=== PATIENT | female | born 1955 | race Caucasian/White ===

== ENCOUNTER 2018-08-07 17:01 | Inpatient (IN) | payer OTHER ==
[~2018-08-07] VITALS: Ht 157.5 cm; Wt 75.3 kg
[~2018-08-07 17:01] MED LIST: LEVO500T48 PO
[2018-08-07] MEDS ORDERED: SODIUM CHLORIDE 0.9% 1L BAG IV* STA (17:24)
[2018-08-07] MEDS ORDERED: CEFTRIAXONE 1 GM/50 ML (PMX) 50 ML IVPB STA (17:24)
[2018-08-07] MEDS ORDERED: morphine 4 MG/ML VIAL IV STA (17:24)
[2018-08-07] MEDS ORDERED: ONDANSETRON 4 MG INJ IV STA (17:24)
[2018-08-07] MEDS ORDERED: ACETAMINOPHEN 325 MG TAB PO STA (17:24)
[2018-08-07] MEDS ORDERED: KETOROLAC 15 MG INJ IV STA (17:24)
--- NOTE | 2018-08-07 17:51 | ERD ---
ER Documentation Chief Complaint Chief Complaint fever , chills , post op , rt kidney surg 08/04/18 HPI 63-year-old female who had recent right ureteral stone status post stent placement and partial retrieval. Patient has had fevers and chills over the last several days. She describes persistent right-sided flank pain that is mod erate. It appears the patient's surgical intervention was 1 week ago, with check up 3 days ago. She denies any cough chest pain or shortness of breath. Symptoms are moderate currently. ROS All systems reviewed and are negative except as per history of present illness. Medications Home Meds Reported Medications Hydrocodone/Acetaminophen ([place] 7.5-325 Tablet) 1 Each Tablet, 1 EACH PO Q4H, TAB 08/07/18 Discontinued Scripts Levofloxacin* (Levaquin*) 500 Mg Tablet, 500 MG PO DAILY for 5 Days, TAB Prov:WILLIAMZECHARIAH 02/15/16 Allergies Allergies: Coded Allergies: sulfamethoxazole (Verified Allergy, Severe, Redness, low blood pressure, itchiness, ALOC, 08/07/18) trimethoprim (Verified Allergy, Severe, Redness, low blood pressure, itchiness, ALOC, 08/07/18) Penicillins (Unverified Allergy, Unknown, 08/07/18) PMhx/Soc History of Surgery: Yes (pt "stone removed from lung" 2005, ectopic & L ovary removed 1982) Anesthesia Reaction: No Hx Neurological Disorder: No Hx Respiratory Disorders: No Hx Cardiac Disorders: No Hx Psychiatric Problems: No Hx Miscellaneous Medical Probl: No Hx Alcohol Use: No Hx Substance Use: No Hx Tobacco Use: No FmHx Family History: No diabetes Physical Exam Vitals Vital Signs Date Temp Pulse Resp B/P (MAP) Pulse Ox O2 O2 Flow FiO2 Time Delivery Rate 08/07/18 100.7 85 16 90/65 (73) 100 Room Air 18:47 08/07/18 126 20 134/87 100 Room Air 17:50 (103) 08/07/18 103.3 17:45 08/07/18 103.2 133 18 126/76 99 17:19 (93) Physical Exam General: Diaphoretic Head: Normocephalic, atraumatic. Eyes: Pupils equally reactive, EOM intact ENT: Moist mucous membranes Neck: Supple, no lymphadenopathy Respiratory: Lungs clear bilaterally, no distress Cardiovascular: Tachycardia, no murmurs, rubs, or gallops Abdominal: Soft, non-tender, non-distended, no peritoneal signs Back: Right-sided CVA tenderness : Deferred MSK: No edema, no unilateral swelling, 5/5 strength Neurologic: Alert and oriented, moving all extremities, normal speech, no focal weakness, no cerebellar signs Skin: No rash Psych: Normal mood Result Diagram: 08/07/18 1733 08/07/18 1733 Results 24 hrs Laboratory Tests Test 08/07/18 17:33 08/07/18 17:34 White Blood Count 8.5 10^3/ul Red Blood Count 5.14 10^6/ul Hemoglobin 11.9 g/dl Hematocrit 38.3 % Mean Corpuscular Volume 74.5 fl Mean Corpuscular Hemoglobin 23.2 pg Mean Corpuscular Hemoglobin Concent 31.1 g/dl Red Cell Distribution Width 17.0 % Platelet Count 354 10^3/UL Mean Platelet Volume 10.3 fl Immature Granulocytes % 0.700 % Neutrophils % % Segmented Neutrophils % (Manual) 76 % Band Neutrophils % (Manual) 15 % Lymphocytes % % Lymphocytes % (Manual) 8 % Monocytes % % Eosinophils % % Basophils % % Promyelocytes % (Manual) 1 % Nucleated Red Blood Cells % 0.0 /100WBC Immature Granulocytes # 0.060 10^3/ul Neutrophils # 10^3/ul Neutrophils # (Manual) 6.6 10^3/ul Band Neutrophils # 1.2 10^3/ul Lymphocytes (Manual) 0.6 10^3/ul Lymphocytes # 10^3/ul Monocytes # 10^3/ul Eosinophils # 10^3/ul Basophils # 10^3/ul Promyelocytes # 0.0 10^3/ul Nucleated Red Blood Cells # 10^3/ul Platelet Estimate NORMAL Polychromasia 1+ Anisocytosis 2+ Microcytosis 2+ Prothrombin Time 14.1 Sec Prothrombin Time Ratio 1.1 INR International Normalized Ratio 1.08 Activated Partial Thromboplast Time 28.2 Sec Sodium Level 134 mmol/L Potassium Level 4.3 mmol/L Chloride Level 100 mmol/L Carbon Dioxide Level 22 mmol/L Anion Gap 12 Blood Urea Nitrogen 14 mg/dl Creatinine 0.97 mg/dl Est Glomerular Filtrat Rate mL/min 58 mL/min Glucose Level 151 mg/dl Calcium Level 9.1 mg/dl Total Bilirubin 1.0 mg/dl Direct Bilirubin 0.00 mg/dl Indirect Bilirubin 1.0 mg/dl Aspartate Amino Transf (AST/SGOT) 38 IU/L Alanine Aminotransferase (ALT/SGPT) 17 IU/L Alkaline Phosphatase 231 IU/L Troponin I < 0.012 ng/ml Total Protein 7.6 g/dl Albumin 3.8 g/dl Globulin 3.80 g/dl Albumin/Globulin Ratio 1.00 POC Venous Lactate 3.4 mmol/L Current Medications Medications Dose Sig/Leonie Start Time Status Last (Trade) Ordered Route PRN Stop Time Admin Dose Reason Admin Sodium 2,150 ml BOLUS OVER 2 08/07/18 DC 08/07/18 Chloride HOURS STAT 17:24 17:39 (NS) IV* 08/07/18 17:30 650 mg ONCE STAT 08/07/18 DC 08/07/18 Acetaminophen PO 17:24 17:45 (Tylenol 08/07/18 17:30 Tab) Morphine 4 mg ONCE STAT 08/07/18 DC 08/07/18 Sulfate IV 17:24 17:43 (morphine) 08/07/18 17:30 Ondansetron 4 mg ONCE STAT 08/07/18 DC 08/07/18 HCl (Zofran IV 17:24 17:43 Inj) 08/07/18 17:30 Ceftriaxone 50 ml @ ONCE STAT 08/07/18 DC 08/07/18 Sodium 100 mls/hr IVPB 17:24 17:45 08/07/18 17:53 Ketorolac 15 mg ONCE STAT 08/07/18 DC 08/07/18 Tromethamine IV 17:24 17:43 (Toradol) 08/07/18 17:30 Ondansetron 4 mg BRIDGE ORDER 08/07/18 HCl (Zofran PRN IV 19:00 Inj) NAUSEA/VOMITI 08/08/18 18:59 NG 650 mg ER BRIDGE 08/07/18 Acetaminophen PRN PO 19:00 (Tylenol .MILD PAIN 08/08/18 18:59 Tab) 1-3 OR TEMP Sodium 1,000 ml @ Q1H STAT 08/07/18 Chloride 1,000 mls/hr IV 19:30 08/07/18 20:29 Procedures/MDM EKG, MONITORS, & DIAGNOSTIC IMAGING: EKG: I reviewed and interpreted a 12-lead EKG. Rhythm: Sinus tachycardia ST Changes: No contiguous ST segment elevations T waves: No contiguous T wave inversions Impression: No evidence of acute cardiac ischemia Chest x-ray: I reviewed and interpreted a 1 view of the chest Mediastinum: No enlargement Cardiac silhouette: No cardiomegaly Airspace: Clear lung fitch bilaterally without evidence of pneumothorax Bones: No evidence of fracture CT abdomen and pelvis: IMPRESSION: Right hydroureter nephrosis despite presence of double-J ureteral stent - rule out stent failure. 2.7 cm calculus right renal pelvis either adjacent to or attached to the pigtail. Multiple nonobstructing right renal calculi. Concretion along the stent in the distal ureter. Right renal cysts. Fatty liver. Vascular calcifications. Gastric bypass. LAB INTERPRETATION: I reviewed the laboratory testing and it shows lactic acidosis MEDICAL DECISION MAKING: Patient presents with fever tachycardia and right-sided flank pain with recent stent deployment secondary to ureteral stone. The patient's presentation is very concerning for sepsis likely secondary to infected stone versus stent. Patient requires broad-spectrum antibiotics. Antibiotics. Fluid resuscitation. Urology consultation. Patient is hemodynamically stable and does not require central line or pressors at this time. ER COURSE: * Aggressive fluid resuscitation, blood cultures prior to antibiotics, ceftriaxone provided. * Lactic acid is elevated consistent with severe sepsis. * Urology notified, agrees with the plan of care * BP trended into 90s but MAPs around 70s. Patient looking much improved. At this point I do not believe the patient requires a central line. Further fluid resuscitation is likely appropriate as dehydration is present. No indication for central line presently. Continue to monitor. * Repeat lactic acid pending. CONSULTATION: Urology Dr. Boyd DISPOSITION PLAN: Accepting care team and consultations: I discussed the current laboratory data, diagnostic imaging and emergency care provided. Admitting team: Dr. Miranda Admitting team indication: Insurance directed, [place] Sepsis Documentation: Patient's infectious symptoms have not stabilized and the patient is at risk of rapid decompensation. The patient will be admitted for careful hydration, antibiotic therapy, and infectious source control. SEVERE SEPSIS CRITERIA: Infectious source: Ureteral stent End organ damage indicated by: [Lactate > 2.0 mmol/L SEPSIS MANAGEMENT Time of recognition of sepsis: Upon MD assessment. Time of recognition of severe sepsis: 1733. Time of recognition of septic shock: No septic shock at this time. 3 HOUR BUNDLE Blood cultures x 2 before broad-spectrum antibiotics: Yes 30 ml/kg NS bolus completed Initial lactate 3.4 Repeat lactate pending SEPTIC SHOCK ASSESSMENT: No lactic acid > 4.0 No persistent hypotension (SBP < 90 or 40 mmHg drop, MAP < 65) despite 30 mL/kg IV fluid bolus VOLUME REASSESSMENT FOR SEPTIC SHOCK: The patient does not meet criteria for septic shock in the emergency department at this time 7:51 PM PERSISTENT HYPOTENSION TREATMENT: Comfort care no Central line not Required Vasopressor started not required I considered further perfusion assessment with CVP measurement, SCVO2, bedside ultrasound volume assessment, passive leg raise, trial of further fluid bolus. And proceeded with 30 ml/kg fluid bolus of NSS, broad spectrum antibiotics, and admission. CRITICAL CARE Critical care time 45 minutes Emergent fluid management while maintaining close respiratory support. Provision of immediate and broad-spectrum antibiotic therapy. Simultaneous assessment for possible sources in order to direct targeted therapy. Consideration for invasive and chemical support to prevent cardiopulmonary col lapse. Critical care time is independent of procedures performed. Departure Diagnosis: Primary Impression: Kidney stone on right side Additional Impressions: Complicated urinary tract infection Severe sepsis Condition: BERE Mcnally MD Aug 07, 2018 17:51
[2018-08-07] MEDS ORDERED: HYDR-4012 PO (17:58)
[2018-08-07] MEDS ORDERED: ONDANSETRON 4 MG INJ IV PRN ×2 (19:00→20:00)
[2018-08-07] MEDS ORDERED: ACETAMINOPHEN 325 MG TAB PO PRN (19:00)
[2018-08-07] MEDS ORDERED: SOD CHLORIDE 0.9% 1,000 ML IV STA (19:30)
--- NOTE | 2018-08-07 19:31 | CONS ---
Assessment/Plan Assessment/Plan Hospital Course (Demo Recall) 63-year-old female with a history of a large right renal stone underwent cystoscopy and insertion of right ureteral JJ stent and right extracorporeal shockwave lithotripsy on August 04, 2018. She was discharged home on [place] 7.5- 325 mg. The patient presented to the emergency room at [facility] with fever of 103.3 and chills and abdominal pain. A CT scan of the abdomen and pelvis was done and that showed: Right hydroureter nephrosis despite presence of double-J ureteral stent - rule out stent failure. 2.7 cm calculus right renal pelvis either adjacent to or attached to the pigtail. Multiple nonobstructing right renal calculi. Concretion along the stent in the distal ureter. Right renal cysts. Fatty liver. Vascular calcifications. Gastric bypass. Patient states that she was passing blood earlier but that has cleared. On the physical exam she has right flank tenderness and right side of upper abdomen also tender. I reviewed the CT scan with her and showed her the stones in her right kidney. Impression: Patient has a large right renal stone and she is status post cystoscopy insertion of right ureteral JJ stent and right extracorporeal shockwa ve lithotripsy. She presently has fever and chills and she may well be infected. Plan: Blood cultures, urine culture, hydrate her, strain the urine for stones and do a KUB daily to see if any changes in the stone and stone fragments. Consultation Date/Type/Reason Admit Date/Time August 07, 2018 Date of Consultation: Aug 07, 2018 Type of Consult Urology Reason for Consultation Right renal stones and fever Requesting Provider: BERE BENAVIDES MD Date/Time of Note DATE: 08/07/18 TIME: 19:20 Hx of Present Illness 63-year-old female with a history of a large right renal stone underwent cystoscopy and insertion of right ureteral JJ stent and right extracorporeal shockwave lithotripsy on August 04, 2018. She was discharged home on [place] 7.5- 325 mg. The patient presented to the emergency room at [facility] with fever of 103.3 and chills and abdominal pain. A CT scan of the abdomen and pelvis was done and that showed: Right hydroureter nephrosis despite presence of double-J ureteral stent - rule out stent failure. 2.7 cm calculus right renal pelvis either adjacent to or attached to the pigtail. Multiple nonobstructing right renal calculi. Concretion along the stent in the distal ureter. Right renal cysts. Fatty liver. Vascular calcifications. Gastric bypass. Patient states that she was passing blood earlier but that has cleared. Constitutional: chills, febrile Eyes: no complaints ENT: no complaints Respiratory: no complaints; No shortness of breath Cardiovascular: No chest pain Gastrointestinal: nausea; No vomiting Genitourinary: flank pain (Right side), hematuria (Earlier) Musculoskeletal: no complaints Skin: no complaints Neurologic: no complaints Endocrine: no complaints Lymphatic: no complaints Psychological: no complaints Immunologic: no complaints Past Medical History Medical History: other (History of kidney stones) Home Meds Reported Medications Hydrocodone/Acetaminophen ([place] 7.5-325 Tablet) 1 Each Tablet, 1 EACH PO Q4H, TAB 08/07/18 Discontinued Scripts Levofloxacin* (Levaquin*) 500 Mg Tablet, 500 MG PO DAILY for 5 Days, TAB Prov:ZECHARIAH THOMAS 02/15/16 Medications Current Medications Ondansetron HCl (Zofran Inj) 4 mg BRIDGE ORDER PRN IV NAUSEA/VOMITING; Start 08/07/18 at 19:00; Stop 08/08/18 at 18:59 Acetaminophen (Tylenol Tab) 650 mg ER BRIDGE PRN PO .MILD PAIN 1-3 OR TEMP; Start 08/07/18 at 19:00; Stop 08/08/18 at 18:59 Allergies: Coded Allergies: sulfamethoxazole (Verified Allergy, Severe, Redness, low blood pressure, itchiness, ALOC, 08/07/18) trimethoprim (Verified Allergy, Severe, Redness, low blood pressure, itchiness, ALOC, 08/07/18) Penicillins (Unverified Allergy, Unknown, 08/07/18) Past Surgical History Past Surgical Hx: other (Gastric bypass surgery in 2005, surgery for 1 ectopic , tubal ligation) Family History Significant Family History: no pertinent family hx Social History Alcohol Use: none Smoking Status: Never smoker Drug Use: none Other Social History She is a 4 para 3, she had one ectopic and 3 normal deliveries Exam/Review of Systems Exam Vitals Vital Signs Date Temp Pulse Resp B/P (MAP) Pulse Ox O2 O2 Flow FiO2 Time Delivery Rate 08/07/18 100.7 85 16 90/65 (73) 100 Room Air 18:47 Constitutional: alert, oriented Psych: no complaints Head: normocephalic Eyes: nl conjunctiva ENMT: nl external ears & nose Neck: supple Respiratory: normal air movement; No wheezing Cardiovascular: No jugular venous distention (JVD) Gastrointestinal: soft, surgical scars Genitourinary - Female: CVA tenderness (Right side) Musculoskeletal: nl extremities to inspection Extremities: No calf tenderness Neurological: nl mental status Skin: nl turgor Results Result Diagram: 08/07/18 1733 08/07/18 1733 Results 24hrs Laboratory Tests Test 08/07/18 17:33 08/07/18 17:34 White Blood Count 8.5 # Red Blood Count 5.14 # Hemoglobin 11.9 L Hematocrit 38.3 Mean Corpuscular Volume 74.5 L Mean Corpuscular Hemoglobin 23.2 L Mean Corpuscular Hemoglobin Concent 31.1 L Red Cell Distribution Width 17.0 H Platelet Count 354 Mean Platelet Volume 10.3 Immature Granulocytes % 0.700 H Neutrophils % Segmented Neutrophils % (Manual) 76 Band Neutrophils % (Manual) 15 H Lymphocytes % Lymphocytes % (Manual) 8 L Monocytes % Eosinophils % Basophils % Promyelocytes % (Manual) 1 H Nucleated Red Blood Cells % 0.0 Immature Granulocytes # 0.060 H Neutrophils # Neutrophils # (Manual) 6.6 Band Neutrophils # 1.2 H Lymphocytes (Manual) 0.6 L Lymphocytes # Monocytes # Eosinophils # Basophils # Promyelocytes # 0.0 Nucleated Red Blood Cells # Platelet Estimate NORMAL Polychromasia 1+ Anisocytosis 2+ Microcytosis 2+ Prothrombin Time 14.1 Prothrombin Time Ratio 1.1 INR International Normalized Ratio 1.08 Activated Partial Thromboplast Time 28.2 Sodium Level 134 L Potassium Level 4.3 Chloride Level 100 Carbon Dioxide Level 22 Anion Gap 12 Blood Urea Nitrogen 14 Creatinine 0.97 Est Glomerular Filtrat Rate mL/min 58 L Glucose Level 151 Calcium Level 9.1 Total Bilirubin 1.0 Direct Bilirubin 0.00 Indirect Bilirubin 1.0 Aspartate Amino Transf (AST/SGOT) 38 Alanine Aminotransferase (ALT/SGPT) 17 Alkaline Phosphatase 231 H Troponin I < 0.012 Total Protein 7.6 Albumin 3.8 Globulin 3.80 H Albumin/Globulin Ratio 1.00 POC Venous Lactate 3.4 *H Imaging Imaging CT scan of the abdomen and pelvis: Right hydroureter nephrosis despite presence of double-J ureteral stent - rule out stent failure. 2.7 cm calculus right renal pelvis either adjacent to or a ttached to the pigtail. Multiple nonobstructing right renal calculi. Concretion along the stent in the distal ureter. Right renal cysts. Fatty liver. Vascular calcifications. Gastric bypass. Medications Medication Current Medications Ondansetron HCl (Zofran Inj) 4 mg BRIDGE ORDER PRN IV NAUSEA/VOMITING; Start 08/07/18 at 19:00; Stop 08/08/18 at 18:59 Acetaminophen (Tylenol Tab) 650 mg ER BRIDGE PRN PO .MILD PAIN 1-3 OR TEMP; Start 08/07/18 at 19:00; Stop 08/08/18 at 18:59 VAUGHN GARZA MD Aug 07, 2018 19:31
[2018-08-07] MEDS ORDERED: ZOLPIDEM 5 MG TAB PO PRN (20:00)
[2018-08-07] MEDS: LEVOFLOXACIN 500 MG TAB PO SCH (21:20)
[2018-08-07 21:57] VITALS: Ht 157.5 cm; Wt 75.3 kg
[2018-08-07 22:00] VITALS: BP 87/55; PULSE 67; RESP 18
[2018-08-08] VITALS (11 sets, daily range): BP systolic 96–115; BP diastolic 52–63; PULSE 56–77; RESP 17–22
--- NOTE | 2018-08-08 08:16 | HP ---
Date/Time of Note Date/Time of Note DATE: 08/08/18 TIME: 08:15 Assessment/Plan VTE Prophylaxis SCD applied (from Nsg): Yes Pharmacological prophylaxis: NA/contraindicated Pharm contraindication: bleeding Lines/Catheters IV Catheter Type (from Nrsg): Saline Lock Assessment/Plan Hospital Course (1) Severe sepsis in the setting of Complicated urinary tract infection /right sided Pyelonephritis (2) Kidney stone on right side, s/p stent , s/p lithotripsy with expectant management , (3) Hydroureteronephrosis, rule out stent failure (4) obstructive uropathy , creatinine increasing - followed by urology Dr Jones - Aztreonam given penicillin allergy , - Blood and urine culture , unfortunately no blood or urine cultures were obtain in the ER , - Pain and nausea management - Bowel regimen for constipation - IVF and monitor creatinine - PPX: Pepcid and SCD , Problems: (1) Severe sepsis Status: Acute (2) Complicated urinary tract infection Status: Acute (3) Kidney stone on right side Status: Acute (4) Hydroureteronephrosis (5) Pyelonephritis (6) Obstructive uropathy Result Diagram: 08/07/18 1733 08/07/18 1733 Results 24hrs Laboratory Tests Test 08/07/18 17:33 08/07/18 17:34 08/07/18 20:09 08/07/18 22:22 White Blood Count 8.5 # Red Blood Count 5.14 # Hemoglobin 11.9 L Hematocrit 38.3 Mean Corpuscular 74.5 L Volume Mean Corpuscular 23.2 L Hemoglobin Mean Corpuscular 31.1 L Hemoglobin Concent Red Cell 17.0 H Distribution Width Platelet Count 354 Mean Platelet Volume 10.3 Immature 0.700 H Granulocytes % Neutrophils % Segmented 76 Neutrophils % (Manual) Band Neutrophils % 15 H (Manual) Lymphocytes % Lymphocytes % 8 L (Manual) Monocytes % Eosinophils % Basophils % Promyelocytes % 1 H (Manual) Nucleated Red Blood 0.0 Cells % Immature 0.060 H Granulocytes # Neutrophils # Neutrophils # 6.6 (Manual) Band Neutrophils # 1.2 H Lymphocytes (Manual) 0.6 L Lymphocytes # Monocytes # Eosinophils # Basophils # Promyelocytes # 0.0 Nucleated Red Blood Cells # Platelet Estimate NORMAL Polychromasia 1+ Anisocytosis 2+ Microcytosis 2+ Prothrombin Time 14.1 Prothrombin Time 1.1 Ratio INR International 1.08 Normalized Ratio Activated 28.2 Partial Thromboplast Time Sodium Level 134 L Potassium Level 4.3 Chloride Level 100 Carbon Dioxide Level 22 Anion Gap 12 Blood Urea Nitrogen 14 Creatinine 0.97 Est Glomerular 58 L Filtrat Rate mL/min Glucose Level 151 Calcium Level 9.1 Total Bilirubin 1.0 Direct Bilirubin 0.00 Indirect Bilirubin 1.0 Aspartate Amino 38 Transf (AST/SGOT) Alanine 17 Aminotransferase (AL T/SGPT) Alkaline Phosphatase 231 H Troponin I < 0.012 Total Protein 7.6 Albumin 3.8 Globulin 3.80 H Albumin/Globulin 1.00 Ratio POC Venous Lactate 3.4 *H Lactic Acid Level 0.9 1.0 Test 08/07/18 23:30 08/08/18 07:10 Urine Color YELLOW Urine Clarity CLOUDY A Urine pH 6.0 Urine Specific 1.013 [place] Urine Ketones NEGATIVE Urine Nitrite NEGATIVE Urine Bilirubin NEGATIVE Urine Urobilinogen 1+ H Urine Leukocyte 3+ H Esterase Urine Microscopic 23 H RBC Urine Microscopic 156 H WBC Urine Squamous MANY A Epithelial Cells Urine Amorphous FEW A Crystals Urine Bacteria FEW A Urine Hemoglobin 2+ H Urine Glucose NEGATIVE Urine Total Protein NEGATIVE White Blood Count Pending Red Blood Count Pending Hemoglobin Pending Hematocrit Pending Mean Corpuscular Pending Volume Mean Corpuscular Pending Hemoglobin Mean Corpuscular Pending Hemoglobin Concent Red Cell Pending Distribution Width Platelet Count Pending Mean Platelet Volume Pending HPI/ROS Admit Date/Time Admit Date/Time August 07, 2018 Hx of Present Illness 63 f with history of gastric bypass surgery and recent history of large right renal stone which underwent cystoscopy with insertion of right ureteral JJ stent and right extracorporeal shockwave lithotripsy on August 04, 2018.for. The patient presented to the emergency room at [facility] with fever and severe constant right flank pain . Deies change in bowel and urination habits . Denies hematuria , vaginal bleeding , melena, hematochezia , hematemesis . Denies CP, SOB, She was noted to have elevated white count at 14k and low Hb at 9.7 . Lactic acid was elevated A CT scan of the abdomen and pelvis was done and that showed: Right hydroureter nephrosis despite presence of double-J ureteral stent - rule out stent failure. 2.7 cm calculus right renal pelvis either adjacent to or attached to the pigtail. Multiple nonobstructing right renal calculi. Concretion along the stent in the distal ureter. Patient was admitted for further management of sepsis in the setting of complicated UTI and hydroureteronephrosis. Dr Jones of urology was consulted . PMH/Family/Social Past Medical History Medical History: other (History of kidney stones) Medications Current Medications Acetaminophen (Tylenol Tab) 650 mg ER BRIDGE PRN PO .MILD PAIN 1-3 OR TEMP Last administered on 08/08/18at 00:21; Admin Dose 650 MG; Start 08/07/18 at 19:00; Stop 08/08/18 at 18:59 Ondansetron HCl (Zofran Inj) 4 mg Q4 PRN IV NAUSEA; Start 08/07/18 at 20:00 Zolpidem Tartrate (Ambien) 5 mg HS MAY REPEAT X 1 PRN PO INSOMNIA; Start 08/07/18 at 20:00 Levofloxacin (Levaquin) 500 mg HS PO Last administered on 08/07/18at 21:20; Admin Dose 500 MG; Start 08/07/18 at 20:00 Morphine Sulfate (morphine) 2 mg Q2H PRN IV PAIN LEVEL 4-6; Start 08/07/18 at 23:00 Morphine Sulfate (morphine) 3 mg Q3H PRN IV SEVERE PAIN LEVEL 7-10; Start 08/07/18 at 23:00 Coded Allergies: sulfamethoxazole (Verified Allergy, Severe, Redness, low blood pressure, itchiness, ALOC, 08/07/18) trimethoprim (Verified Allergy, Severe, Redness, low blood pressure, itchiness, ALOC, 08/07/18) Penicillins (Unverified Allergy, Unknown, 08/07/18) Past Surgical History Past Surgical Hx: other (Gastric bypass surgery in 2005, surgery for 1 ectopic , tubal ligation) Family History Significant Family History: no pertinent family hx Social History Alcohol Use: none Smoking Status: Never smoker Drug Use: none Exam/Review of Systems Vital Signs Vitals Vital Signs Date Temp Pulse Resp B/P (MAP) Pulse Ox O2 O2 Flow FiO2 Time Delivery Rate 08/08/18 70 08:10 08/08/18 98.0 22 108/59 96 Room Air 07:47 (75) Intake and Output 08/07/18 08/07/18 08/08/18 1515:00 23:00 07:00 IntakeIntake Total 1070 ml OutputOutput Total 600 ml BalanceBalance 470 ml Exam Exam General: In no acute distress , laying in bed on her left side , cooperative , pleasant HEENT, EOM intact, BENY bilat, mucosal membranes moist and pink , NECK : Supple , not stiffness, , no mass , no carotid bruit Core: S1, S2, NL rate and rhythm, no murmur, no rubs, JVD not elevated, no peripheral edema Lungs: in no respiratory distress, not using the accessory muscles of r espiration, clear bilaterally with no rales, no crackles , no wheezing , normal inspiratory to expiratory ratio Abdomen, soft, not distended, normal bowel sounds, no tenderness, right CVA tenderness present Extremities without : edema , cyanosis, calf tenderness, brisk capillary refill Neurological: AOx3, normal speech, CN2-12 intact, no motor or sensory deficit, normal gait and normal coordination Psychological: no evidence of depression, anxiety , denies suicidal or homicidal ideation LACIE STEWARD MD Aug 08, 2018 08:16
[2018-08-08] MEDS: morphine 2 MG INJ IV PRN ×3 (09:15→17:08)
[2018-08-08] MEDS: ACETAMINOPHEN 325 MG TAB PO PRN ×3 (12:25→22:24)
[2018-08-08] MEDS ORDERED: POLYETHYLENE GLYCOL 3350 119 GM POWDER PO SCH (16:30)
[2018-08-08] MEDS: POLYETHYLENE GLYCOL 17 GM PACKET PO SCH (17:07)
--- NOTE | 2018-08-08 19:35 | CONS ---
Consult Date/Type/Reason Admit Date/Time Aug 07, 2018 at 18:50 Initial Consult Date 08/07/18 Type of Consultation: Urology Reason for Consultation Right renal stones and fever. Patient is status post right extracorporeal shockwave lithotripsy and insertion of right ureteral JJ stent Requesting Provider: LACIE STEWARD MD Date/Time of Note DATE: 08/08/18 TIME: 19:31 Subjective Patient has fever 100.8. She denies any dysuria today and her urine is clear. Objective Vitals Vital Signs Date Temp Pulse Resp B/P (MAP) Pulse Ox O2 O2 Flow FiO2 Time Delivery Rate 08/08/18 100.8 71 22 107/55 92 19:15 (72) 08/08/18 Room Air 16:11 Intake and Output 08/07/18 08/07/18 08/08/18 1515:00 23:00 07:00 IntakeIntake Total 1070 ml OutputOutput Total 600 ml BalanceBalance 470 ml Exam She is febrile, she does have right flank tenderness. KUB done today did not show the stone. The stone is very large but it appears it may be uric acid stone and that is why it is not visible on the plain film. Results/Medications Result Diagram: 08/08/18 0710 08/08/18 0710 Results 24 hrs Laboratory Tests Test 08/07/18 20:09 08/07/18 22:22 08/07/18 23:30 08/08/18 07:10 Lactic Acid Level 0.9 1.0 Urine Color YELLOW Urine Clarity CLOUDY A Urine pH 6.0 Urine Specific 1.013 [place] Urine Ketones NEGATIVE Urine Nitrite NEGATIVE Urine Bilirubin NEGATIVE Urine Urobilinogen 1+ H Urine Leukocyte 3+ H Esterase Urine Microscopic 23 H RBC Urine Microscopic 156 H WBC Urine Squamous MANY A Epithelial Cells Urine Amorphous FEW A Crystals Urine Bacteria FEW A Urine Hemoglobin 2+ H Urine Glucose NEGATIVE Urine Total Protein NEGATIVE White Blood Count 14.5 #H Red Blood Count 4.16 L Hemoglobin 9.7 L Hematocrit 31.7 L Mean Corpuscular 76.2 L Volume Mean Corpuscular 23.3 L Hemoglobin Mean Corpuscular 30.6 L Hemoglobin Concent Red Cell 17.5 H Distribution Width Platelet Count 318 Mean Platelet Volume 10.9 H Immature 0.600 H Granulocytes % Neutrophils % Segmented 66 Neutrophils % (Manual) Band Neutrophils % 26 H (Manual) Lymphocytes % Lymphocytes % 3 L (Manual) Monocytes % Monocytes % (Manual) 3 Eosinophils % Eosinophils % 1 (Manual) Basophils % Basophils % (Manual) 1 Nucleated Red Blood 0.0 Cells % Immature 0.090 H Granulocytes # Neutrophils # Neutrophils # 10.1 H (Manual) Band Neutrophils # 3.7 H Lymphocytes (Manual) 0.4 L Lymphocytes # Monocytes # Monocytes # (Manual) 0.4 Eosinophils # Basophils # Basophils # (Manual) 0.1 H Nucleated Red Blood Cells # Platelet Estimate NORMAL Giant Platelets 1 H Polychromasia 3+ Poikilocytosis 1+ Anisocytosis 1+ Microcytosis 1+ Ovalocytes 1+ Sodium Level 137 Potassium Level 4.5 Chloride Level 106 Carbon Dioxide Level 25 Anion Gap 6 Blood Urea Nitrogen 14 Creatinine 1.01 H Est Glomerular 56 L Filtrat Rate mL/min Glucose Level 96 # Calcium Level 8.6 Home Meds Reported Medications Hydrocodone/Acetaminophen ([place] 7.5-325 Tablet) 1 Each Tablet, 1 EACH PO Q4H, TAB 08/07/18 Discontinued Scripts Levofloxacin* (Levaquin*) 500 Mg Tablet, 500 MG PO DAILY for 5 Days, TAB Prov:ZECHARIAH THOMAS 02/15/16 Medications Current Medications Ondansetron HCl (Zofran Inj) 4 mg Q4 PRN IV NAUSEA; Start 08/07/18 at 20:00 Zolpidem Tartrate (Ambien) 5 mg HS MAY REPEAT X 1 PRN PO INSOMNIA; Start 08/07/18 at 20:00 Levofloxacin (Levaquin) 500 mg HS PO Last administered on 08/07/18at 21:20; Admin Dose 500 MG; Start 08/07/18 at 20:00 Morphine Sulfate (morphine) 2 mg Q2H PRN IV PAIN LEVEL 4-6 Last administered on 08/08/18at 17:08; Admin Dose 2 MG; Start 08/07/18 at 23:00 Morphine Sulfate (morphine) 3 mg Q3H PRN IV SEVERE PAIN LEVEL 7-10; Start 08/07/18 at 23:00 Acetaminophen (Tylenol Tab) 650 mg Q4H PRN PO MILD PAIN(1-3)OR ELEVATED TEMP Last administered on 08/08/18at 17:12; Admin Dose 650 MG; Start 08/08/18 at 12:00 Polyethylene Glycol (Miralax) 17 gm DAILY PO Last administered on 08/08/18at 17:07; Admin Dose 17 GM; Start 08/08/18 at 17:00 Aztreonam 2 gm/ Sodium Chloride 100 ml @ 100 mls/hr Q12 IVPB ; Start 08/08/18 at 21:00 Sodium Chloride 1,000 ml @ 100 mls/hr Q10H IV ; Start 08/08/18 at 19:30 Famotidine (Pepcid) 20 mg HS PO ; Start 08/08/18 at 21:00 Imaging KUB: 1. Previously described right renal calculi not visualized on plain film radiograph suggestive of either a casted calculi. 2. Double pigtail renal collecting system stent as described above Assessment/Plan Hospital Course (Demo Recall) 63-year-old female with a history of a large right renal stone underwent cystoscopy and insertion of right ureteral JJ stent and right extracorporeal shockwave lithotripsy on August 04, 2018. She was discharged home on [place] 7.5- 325 mg. The patient presented to the emergency room at [facility] with fever of 103.3 and chills and abdominal pain. A CT scan of the abdomen and pelvis was done and that showed: Right hydroureter nephrosis despite presence of double-J ureteral stent - rule out stent failure. 2.7 cm calculus right renal pelvis either adjacent to or attached to the pigtail. Multiple nonobstructing right renal calculi. Concretion along the stent in the distal ureter. Right renal cysts. Fatty liver. Vascular calcifications. Gastric bypass. Patient states that she was passing blood earlier but that has cleared. On the physical exam she has right flank tenderness and right side of upper abdomen also tender. I reviewed the CT scan with her and showed her the stones in her right kidney. Impression: Patient has a large right renal stone and she is status post cystoscopy insertion of right ureteral JJ stent and right extracorporeal shockwave lithotripsy. She presently has fever and chills and she may well be infected. Urine culture is pending and the KUB done today showed: 1. Previously described right renal calculi not visualized on plain film radiograph suggestive of either a casted calculi. 2. Double pigtail renal collecting system stent as described above Therefore most likely the stone is made of uric acid. For now we will continue hydration of the patient and antibiotic and continue to strain her urine for stone and stone fragments. VAUGHN GARZA MD Aug 08, 2018 19:35
[2018-08-08] MEDS: SOD CHLORIDE 0.9% 1,000 ML IV SCH (20:36)
[2018-08-08] MEDS: LEVOFLOXACIN 500 MG TAB PO SCH (20:36)
[2018-08-08] MEDS: AZTREONAM 2 GM in SOD CHLORIDE 0.9% 100 ML IVPB SCH (20:36)
[2018-08-08] MEDS: morphine 4 MG/ML VIAL IV PRN (20:37)
[2018-08-08] MEDS: FAMOTIDINE 20 MG TAB PO SCH (20:37)
[2018-08-09] VITALS (11 sets, daily range): BP systolic 105–121; BP diastolic 61–79; PULSE 56–79; RESP 19–20
[2018-08-09] MEDS: ACETAMINOPHEN 325 MG TAB PO PRN ×3 (03:35→21:59)
[2018-08-09] MEDS: SOD CHLORIDE 0.9% 1,000 ML IV SCH ×2 (05:33→08:33)
[2018-08-09] MEDS: POLYETHYLENE GLYCOL 17 GM PACKET PO SCH (08:32)
[2018-08-09] MEDS: AZTREONAM 2 GM in SOD CHLORIDE 0.9% 100 ML IVPB SCH ×2 (08:33→22:00)
[2018-08-09] MEDS: morphine 2 MG INJ IV PRN (11:39)
--- NOTE | 2018-08-09 13:06 | PN ---
Date/Time of Note Date/Time of Note DATE: 08/09/18 TIME: 13:05 Assessment/Plan VTE Prophylaxis Risk score (from Nsg)>0 risk: 4 SCD applied (from Nsg): Yes Pharmacological prophylaxis: heparin Lines/Catheters IV Catheter Type (from Nrsg): Saline Lock Assessment/Plan Assessment/Plan 1. complicated uti,m cont aztreonam anbd levoflox, no further fevr, but wbc not changing 2. kidney stone, persistently symp-tomatic, await urology opinion Result Diagram: 08/09/18 0621 08/09/18 0621 Results 24hrs Laboratory Tests Test 08/09/18 06:21 White Blood Count 13.9 H Red Blood Count 3.99 L Hemoglobin 9.4 L Hematocrit 30.6 L Mean Corpuscular Volume 76.7 L Mean Corpuscular Hemoglobin 23.6 L Mean Corpuscular Hemoglobin Concent 30.7 L Red Cell Distribution Width 17.5 H Platelet Count 333 Mean Platelet Volume 10.5 H Immature Granulocytes % 0.600 H Neutrophils % Lymphocytes % Monocytes % Eosinophils % Basophils % Nucleated Red Blood Cells % 0.0 Immature Granulocytes # 0.090 H Neutrophils # Lymphocytes # Monocytes # Eosinophils # Basophils # Nucleated Red Blood Cells # Sodium Level 138 Potassium Level 4.3 Chloride Level 109 Carbon Dioxide Level 25 Anion Gap 4 L Blood Urea Nitrogen 11 Creatinine 0.92 Est Glomerular Filtrat Rate mL/min > 60 Glucose Level 109 Calcium Level 8.3 L Phosphorus Level 3.7 Magnesium Level 2.0 Total Bilirubin 0.5 Direct Bilirubin 0.00 Indirect Bilirubin 0.5 Aspartate Amino Transf (AST/SGOT) 21 Alanine Aminotransferase (ALT/SGPT) 20 Alkaline Phosphatase 146 H Total Protein 5.9 #L Albumin 2.8 #L Globulin 3.10 Albumin/Globulin Ratio 0.90 Subjective 24 Hr Interval Summary Free Text/Dictation still having R flank pain requiring morphine, pain controlled with meds Exam/Review of Systems Exam Vitals Vital Signs Date Temp Pulse Resp B/P (MAP) Pulse Ox O2 O2 Flow FiO2 Time Delivery Rate 08/09/18 68 12:08 08/09/18 99.4 19 120/63 98 Room Air 11:20 (82) Intake and Output 08/08/18 08/08/18 08/09/18 1515:00 23:00 07:00 IntakeIntake Total 1060 ml 450 ml BalanceBalance 1060 ml 450 ml Exam nad, soft nt, rrr, ctab Results Results 24hrs Laboratory Tests Test 08/09/18 06:21 White Blood Count 13.9 H Red Blood Count 3.99 L Hemoglobin 9.4 L Hematocrit 30.6 L Mean Corpuscular Volume 76.7 L Mean Corpuscular Hemoglobin 23.6 L Mean Corpuscular Hemoglobin Concent 30.7 L Red Cell Distribution Width 17.5 H Platelet Count 333 Mean Platelet Volume 10.5 H Immature Granulocytes % 0.600 H Neutrophils % Lymphocytes % Monocytes % Eosinophils % Basophils % Nucleated Red Blood Cells % 0.0 Immature Granulocytes # 0.090 H Neutrophils # Lymphocytes # Monocytes # Eosinophils # Basophils # Nucleated Red Blood Cells # Sodium Level 138 Potassium Level 4.3 Chloride Level 109 Carbon Dioxide Level 25 Anion Gap 4 L Blood Urea Nitrogen 11 Creatinine 0.92 Est Glomerular Filtrat Rate mL/min > 60 Glucose Level 109 Calcium Level 8.3 L Phosphorus Level 3.7 Magnesium Level 2.0 Total Bilirubin 0.5 Direct Bilirubin 0.00 Indirect Bilirubin 0.5 Aspartate Amino Transf (AST/SGOT) 21 Alanine Aminotransferase (ALT/SGPT) 20 Alkaline Phosphatase 146 H Total Protein 5.9 #L Albumin 2.8 #L Globulin 3.10 Albumin/Globulin Ratio 0.90 Medications Medication Current Medications Ondansetron HCl (Zofran Inj) 4 mg Q4 PRN IV NAUSEA; Start 08/07/18 at 20:00 Zolpidem Tartrate (Ambien) 5 mg HS MAY REPEAT X 1 PRN PO INSOMNIA; Start 08/07/18 at 20:00 Levofloxacin (Levaquin) 500 mg HS PO Last administered on 08/08/18at 20:36; Admin Dose 500 MG; Start 08/07/18 at 20:00 Morphine Sulfate (morphine) 2 mg Q2H PRN IV PAIN LEVEL 4-6 Last administered on 08/09/18at 11:39; Admin Dose 2 MG; Start 08/07/18 at 23:00 Morphine Sulfate (morphine) 3 mg Q3H PRN IV SEVERE PAIN LEVEL 7-10 Last administered on 08/08/18at 20:37; Admin Dose 3 MG; Start 08/07/18 at 23:00 Acetaminophen (Tylenol Tab) 650 mg Q4H PRN PO MILD PAIN(1-3)OR ELEVATED TEMP Last administered on 08/09/18 03:35; Admin Dose 650 MG; Start 08/08/18 at 12:00 Polyethylene Glycol (Miralax) 17 gm DAILY PO Last administered on 08/09/18 08:32; Admin Dose 17 GM; Start 08/08/18 at 17:00 Aztreonam 2 gm/ Sodium Chloride 100 ml @ 100 mls/hr Q12 IVPB Last administered on 08/09/18 08:33; Admin Dose 100 MLS/HR; Start 08/08/18 at 21:00 Sodium Chloride 1,000 ml @ 100 mls/hr Q10H IV Last administered on 08/09/18 08:33; Admin Dose 100 MLS/HR; Start 08/08/18 at 19:30 Famotidine (Pepcid) 20 mg HS PO Last administered on 08/08/18at 20:37; Admin Dose 20 MG; Start 08/08/18 at 21:00 PEGGY THOMPSON MD Aug 09, 2018 13:06
--- NOTE | 2018-08-09 16:53 | CONS ---
Consult Date/Type/Reason Admit Date/Time Aug 07, 2018 at 18:50 Initial Consult Date 08/07/18 Type of Consultation: Urology Reason for Consultation Right renal stone, status post right extracorporeal shockwave lithotripsy and insertion of right ureteral JJ stent. Requesting Provider: LACIE STEWARD MD Date/Time of Note DATE: 08/09/18 TIME: 16:49 Subjective Patient is feeling better, she still have mild right flank tenderness. Objective Vitals Vital Signs Date Temp Pulse Resp B/P (MAP) Pulse Ox O2 O2 Flow FiO2 Time Delivery Rate 08/09/18 77 16:05 08/09/18 101.2 15:10 08/09/18 20 121/61 98 Room Air 14:58 (81) Intake and Output 08/08/18 08/08/18 08/09/18 1515:00 23:00 07:00 IntakeIntake Total 1060 ml 450 ml BalanceBalance 1060 ml 450 ml Exam Abdomen is soft, she does have right flank tenderness. There is no dysuria and no hematuria. Results/Medications Result Diagram: 08/09/18 0621 08/09/18 0621 Results 24 hrs Laboratory Tests Test 08/09/18 06:21 White Blood Count 13.9 H Red Blood Count 3.99 L Hemoglobin 9.4 L Hematocrit 30.6 L Mean Corpuscular Volume 76.7 L Mean Corpuscular Hemoglobin 23.6 L Mean Corpuscular Hemoglobin Concent 30.7 L Red Cell Distribution Width 17.5 H Platelet Count 333 Mean Platelet Volume 10.5 H Immature Granulocytes % 0.600 H Neutrophils % Segmented Neutrophils % (Manual) 78 H Band Neutrophils % (Manual) 5 H Lymphocytes % Lymphocytes % (Manual) 12 L Monocytes % Monocytes % (Manual) 4 Eosinophils % Eosinophils % (Manual) 1 Basophils % Nucleated Red Blood Cells % 0.0 Immature Granulocytes # 0.090 H Neutrophils # Neutrophils # (Manual) 10.9 H Band Neutrophils # 0.6 Lymphocytes (Manual) 1.6 Lymphocytes # Monocytes # Monocytes # (Manual) 0.5 Eosinophils # Basophils # Nucleated Red Blood Cells # Platelet Estimate NORMAL Giant Platelets 1 H Polychromasia 1+ Anisocytosis 1+ Microcytosis 1+ Sodium Level 138 Potassium Level 4.3 Chloride Level 109 Carbon Dioxide Level 25 Anion Gap 4 L Blood Urea Nitrogen 11 Creatinine 0.92 Est Glomerular Filtrat Rate mL/min > 60 Glucose Level 109 Calcium Level 8.3 L Phosphorus Level 3.7 Magnesium Level 2.0 Total Bilirubin 0.5 Direct Bilirubin 0.00 Indirect Bilirubin 0.5 Aspartate Amino Transf (AST/SGOT) 21 Alanine Aminotransferase (ALT/SGPT) 20 Alkaline Phosphatase 146 H Total Protein 5.9 #L Albumin 2.8 #L Globulin 3.10 Albumin/Globulin Ratio 0.90 Home Meds Reported Medications Hydrocodone/Acetaminophen ([place] 7.5-325 Tablet) 1 Each Tablet, 1 EACH PO Q4H, TAB 08/07/18 Discontinued Scripts Levofloxacin* (Levaquin*) 500 Mg Tablet, 500 MG PO DAILY for 5 Days, TAB Prov:WILLIAMZECHARIAH 02/15/16 Medications Current Medications Ondansetron HCl (Zofran Inj) 4 mg Q4 PRN IV NAUSEA; Start 08/07/18 at 20:00 Zolpidem Tartrate (Ambien) 5 mg HS MAY REPEAT X 1 PRN PO INSOMNIA; Start 08/07/18 at 20:00 Levofloxacin (Levaquin) 500 mg HS PO Last administered on 08/08/18at 20:36; Admin Dose 500 MG; Start 08/07/18 at 20:00 Morphine Sulfate (morphine) 2 mg Q2H PRN IV PAIN LEVEL 4-6 Last administered on 08/09/18at 11:39; Admin Dose 2 MG; Start 08/07/18 at 23:00 Morphine Sulfate (morphine) 3 mg Q3H PRN IV SEVERE PAIN LEVEL 7-10 Last administered on 08/08/18at 20:37; Admin Dose 3 MG; Start 08/07/18 at 23:00 Acetaminophen (Tylenol Tab) 650 mg Q4H PRN PO MILD PAIN(1-3)OR ELEVATED TEMP Last administered on 08/09/18at 15:10; Admin Dose 650 MG; Start 08/08/18 at 12:00 Polyethylene Glycol (Miralax) 17 gm DAILY PO Last administered on 08/09/18 08:32; Admin Dose 17 GM; Start 08/08/18 at 17:00 Aztreonam 2 gm/ Sodium Chloride 100 ml @ 100 mls/hr Q12 IVPB Last administered on 08/09/18 08:33; Admin Dose 100 MLS/HR; Start 08/08/18 at 21:00 Sodium Chloride 1,000 ml @ 100 mls/hr Q10H IV Last administered on 08/09/18at 08:33; Admin Dose 100 MLS/HR; Start 08/08/18 at 19:30 Famotidine (Pepcid) 20 mg HS PO Last administered on 08/08/18at 20:37; Admin Dose 20 MG; Start 08/08/18 at 21:00 Assessment/Plan Hospital Course (Demo Recall) 63-year-old female with a history of a large right renal stone underwent cystoscopy and insertion of right ureteral JJ stent and right extracorporeal sh ockwave lithotripsy on August 04, 2018. She was discharged home on Epworth 7.5-325 mg. The patient presented to the emergency room at [facility] with fever of 103.3 and chills and abdominal pain. A CT scan of the abdomen and pelvis was done and that showed: Right hydroureter nephrosis despite presence of double-J ureteral stent - rule out stent failure. 2.7 cm calculus right renal pelvis either adjacent to or attached to the pigtail. Multiple nonobstructing right renal calculi. Concretion along the stent in the distal ureter. Right renal cysts. Fatty liver. Vascular calcifications. Gastric bypass. Patient states that she was passing blood earlier but that has cleared. On the physical exam she has right flank tenderness and right side of upper abdomen also tender. I reviewed the CT scan with her and showed her the stones in her right kidney. Impression: Patient has a large right renal stone and she is status post cystoscopy insertion of right ureteral JJ stent and right extracorporeal shockwave lithotripsy. She presently has fever and chills and she may well be infected. Urine culture is pending and the KUB done today showed: 1. Previously described right renal calculi not visualized on plain film radiograph suggestive of either a casted calculi. 2. Double pigtail renal collecting system stent as described above Repeat KUB today the stone next to the stent. The stone is large. The blood cultures grew gram-negative rods ,sensitivity is pending Continue the intravenous antibiotic. VAUGHN GARZA MD Aug 09, 2018 16:53
[2018-08-09] MEDS: LEVOFLOXACIN 500 MG TAB PO SCH (21:59)
[2018-08-09] MEDS: FAMOTIDINE 20 MG TAB PO SCH (21:59)
[2018-08-10] VITALS (12 sets, daily range): BP systolic 111–135; BP diastolic 60–75; PULSE 59–155; RESP 17–20
[2018-08-10] MEDS: SOD CHLORIDE 0.9% 1,000 ML IV SCH ×3 (01:50→20:33)
[2018-08-10] MEDS: morphine 4 MG/ML VIAL IV PRN (05:31)
[2018-08-10] MEDS: ACETAMINOPHEN 325 MG TAB PO PRN ×2 (06:32→17:58)
[2018-08-10] MEDS: POLYETHYLENE GLYCOL 17 GM PACKET PO SCH (08:52)
[2018-08-10] MEDS: AZTREONAM 2 GM in SOD CHLORIDE 0.9% 100 ML IVPB SCH ×2 (08:52→20:33)
--- NOTE | 2018-08-10 12:38 | PN ---
Date/Time of Note Date/Time of Note DATE: 08/10/18 TIME: 12:37 Assessment/Plan VTE Prophylaxis Risk score (from Nsg)>0 risk: 3 SCD applied (from Nsg): Yes Pharmacological prophylaxis: LMWH Lines/Catheters IV Catheter Type (from Nrsg): Saline Lock Assessment/Plan Assessment/Plan 1. complicated uti, cont aztreonam and levoflox (b0 kidney stone, appreciate urology assist cont current Result Diagram: 08/09/18 0621 08/09/18 0621 Subjective 24 Hr Interval Summary Free Text/Dictation no new complaints, still some pain, toelrating diet Exam/Review of Systems Exam Vitals Vital Signs Date Temp Pulse Resp B/P (MAP) Pulse Ox O2 O2 Flow FiO2 Time Delivery Rate 08/10/18 61 12:00 08/10/18 98.8 18 127/75 98 11:53 (92) 08/10/18 Room Air 08:30 Intake and Output 08/09/18 08/09/18 08/10/18 1515:00 23:00 07:00 IntakeIntake Total 2100 ml 1850 ml BalanceBalance 2100 ml 1850 ml Exam nad ctab, rrr ,soft nt Medications Medication Current Medications Ondansetron HCl (Zofran Inj) 4 mg Q4 PRN IV NAUSEA; Start 08/07/18 at 20:00 Zolpidem Tartrate (Ambien) 5 mg HS MAY REPEAT X 1 PRN PO INSOMNIA; Start 08/07/18 at 20:00 Levofloxacin (Levaquin) 500 mg HS PO Last administered on 08/09/18at 21:59; Admin Dose 500 MG; Start 08/07/18 at 20:00 Morphine Sulfate (morphine) 2 mg Q2H PRN IV PAIN LEVEL 4-6 Last administered on 08/09/18at 11:39; Admin Dose 2 MG; Start 08/07/18 at 23:00 Morphine Sulfate (morphine) 3 mg Q3H PRN IV SEVERE PAIN LEVEL 7-10 Last administered on 08/10/18at 05:31; Admin Dose 3 MG; Start 08/07/18 at 23:00 Acetaminophen (Tylenol Tab) 650 mg Q4H PRN PO MILD PAIN(1-3)OR ELEVATED TEMP Last administered on 08/10/18at 06:32; Admin Dose 650 MG; Start 08/08/18 at 12:00 Polyethylene Glycol (Miralax) 17 gm DAILY PO Last administered on 08/10/18 08:52; Admin Dose 17 GM; Start 08/08/18 at 17:00 Aztreonam 2 gm/ Sodium Chloride 100 ml @ 100 mls/hr Q12 IVPB Last administered on 08/10/18 08:52; Admin Dose 100 MLS/HR; Start 08/08/18 at 21:00 Sodium Chloride 1,000 ml @ 100 mls/hr Q10H IV Last administered on 08/10/18at 11:28; Admin Dose 100 MLS/HR; Start 08/08/18 at 19:30 Famotidine (Pepcid) 20 mg HS PO Last administered on 08/09/18at 21:59; Admin Dose 20 MG; Start 08/08/18 at 21:00 PEGGY THOMPSON MD Aug 10, 2018 12:38
--- NOTE | 2018-08-10 14:43 | CONS ---
Consult Date/Type/Reason Admit Date/Time Aug 07, 2018 at 18:50 Initial Consult Date 08/07/18 Type of Consultation: Urology Reason for Consultation Right renal stone and fever, urinary tract infection and bacteremia Requesting Provider: LACIE STEWARD MD Date/Time of Note DATE: 08/10/18 TIME: 14:34 Subjective The patient states that she is feeling better but she continues to have right flank pain. Objective Vitals Vital Signs Date Temp Pulse Resp B/P (MAP) Pulse Ox O2 O2 Flow FiO2 Time Delivery Rate 08/10/18 61 12:00 08/10/18 98.8 18 127/75 98 11:53 (92) 08/10/18 Room Air 08:30 Intake and Output 08/09/18 08/09/18 08/10/18 1515:00 23:00 07:00 IntakeIntake Total 2100 ml 1850 ml BalanceBalance 2100 ml 1850 ml Exam The abdomen is soft but she does have right flank tenderness. There is no dysuria and no hematuria. The urine and blood cultures are both growing gram- negative rods. The sensitivity is pending Results/Medications Result Diagram: 08/09/1862008/09/18620 Home Meds Reported Medications Hydrocodone/Acetaminophen ([place] 7.5-325 Tablet) 1 Each Tablet, 1 EACH PO Q4H, TAB 08/07/18 Discontinued Scripts Levofloxacin* (Levaquin*) 500 Mg Tablet, 500 MG PO DAILY for 5 Days, TAB Prov:ZECHARIAH THOMAS 02/15/16 Medications Current Medications Ondansetron HCl (Zofran Inj) 4 mg Q4 PRN IV NAUSEA; Start 08/07/18 at 20:00 Zolpidem Tartrate (Ambien) 5 mg HS MAY REPEAT X 1 PRN PO INSOMNIA; Start 08/07/18 at 20:00 Levofloxacin (Levaquin) 500 mg HS PO Last administered on 08/09/18at 21:59; Admin Dose 500 MG; Start 08/07/18 at 20:00 Morphine Sulfate (morphine) 2 mg Q2H PRN IV PAIN LEVEL 4-6 Last administered on 08/09/18at 11:39; Admin Dose 2 MG; Start 08/07/18 at 23:00 Morphine Sulfate (morphine) 3 mg Q3H PRN IV SEVERE PAIN LEVEL 7-10 Last administered on 08/10/18 05:31; Admin Dose 3 MG; Start 08/07/18 at 23:00 Acetaminophen (Tylenol Tab) 650 mg Q4H PRN PO MILD PAIN(1-3)OR ELEVATED TEMP Last administered on 08/10/18 06:32; Admin Dose 650 MG; Start 08/08/18 at 12:00 Polyethylene Glycol (Miralax) 17 gm DAILY PO Last administered on 08/10/18 08:52; Admin Dose 17 GM; Start 08/08/18 at 17:00 Aztreonam 2 gm/ Sodium Chloride 100 ml @ 100 mls/hr Q12 IVPB Last administered on 08/10/18 08:52; Admin Dose 100 MLS/HR; Start 08/08/18 at 21:00 Sodium Chloride 1,000 ml @ 100 mls/hr Q10H IV Last administered on 08/10/18 11:28; Admin Dose 100 MLS/HR; Start 08/08/18 at 19:30 Famotidine (Pepcid) 20 mg HS PO Last administered on 08/09/18 21:59; Admin Dose 20 MG; Start 08/08/18 at 21:00 Assessment/Plan Hospital Course (Demo Recall) 63-year-old female with a history of a large right renal stone underwent cystoscopy and insertion of right ureteral JJ stent and right extracorporeal shockwave lithotripsy on August 04, 2018. She was discharged home on [place] 7.5- 325 mg. The patient presented to the emergency room at [facility] with fever of 103.3 and chills and abdominal pain. A CT scan of the a bdomen and pelvis was done and that showed: Right hydroureter nephrosis despite presence of double-J ureteral stent - rule out stent failure. 2.7 cm calculus right renal pelvis either adjacent to or attached to the pigtail. Multiple nonobstructing right renal calculi. Concretion along the stent in the distal ureter. Right renal cysts. Fatty liver. Vascular calcifications. Gastric bypass. Patient states that she was passing blood earlier but that has cleared. On the physical exam she has right flank tenderness and right side of upper abdomen also tender. I reviewed the CT scan with her and showed her the stones in her right kidney. Impression: Patient has a large right renal stone and she is status post cystoscopy insertion of right ureteral JJ stent and right extracorporeal shock wave lithotripsy. She no longer has fever. The urine culture and blood cultures are both growing gram-negative rods and the sensitivity is pending. Repeat KUB did show the stone next to the stent. The stone is large. Continue the antibiotics. VAUGHN GARZA MD Aug 10, 2018 14:43
[2018-08-10] MEDS: SENNA TAB PO SCH ×2 (17:00→20:33)
[2018-08-10] MEDS: LEVOFLOXACIN 500 MG TAB PO SCH (20:33)
[2018-08-10] MEDS: FAMOTIDINE 20 MG TAB PO SCH (20:33)
[2018-08-11] VITALS (11 sets, daily range): BP systolic 110–136; BP diastolic 58–80; PULSE 57–85; RESP 16–20
[2018-08-11] MEDS: ACETAMINOPHEN 325 MG TAB PO PRN (01:38)
[2018-08-11] MEDS: SOD CHLORIDE 0.9% 1,000 ML IV SCH ×3 (06:20→21:31)
[2018-08-11] MEDS: POLYETHYLENE GLYCOL 17 GM PACKET PO SCH (08:43)
[2018-08-11] MEDS: AZTREONAM 2 GM in SOD CHLORIDE 0.9% 100 ML IVPB SCH (08:43)
[2018-08-11] MEDS: SENNA TAB PO SCH ×2 (08:43→21:00)
[2018-08-11] MEDS ORDERED: ERTA1VIA3 IM (10:20)
--- NOTE | 2018-08-11 10:21 | PDOCDIS ---
Discharge Instructions CONDITION [id number] Patient Condition: [id number] Good HOME CARE INSTRUCTIONS: [id number] Diet Instructions: [id number] Regular ACTIVITY: [id number] Activity Restrictions: [id number] Slowly Increase Activity FOLLOW UP/APPOINTMENTS Follow-up Plan pcp [address] Boyd 1 week DOMINGO PALMA MD Aug 11, 2018 10:21
--- NOTE | 2018-08-11 13:25 | CONS ---
Consult Date/Type/Reason Admit Date/Time Aug 07, 2018 at 18:50 Initial Consult Date 08/07/18 Type of Consultation: Urology Reason for Consultation Right kidney stone, urinary tract infection with E. coli ESBL and septicemia with E. coli ESBL. Patient is status post extracorporeal shockwave lithotripsy to a large right renal stone and insertion of right ureteral JJ stent Requesting Provider: LACIE STEWARD MD Date/Time of Note DATE: 08/11/18 TIME: 13:22 Subjective The patient is feeling better. She still has pain in the right flank area. She did pass a small stone today. Objective Vitals Vital Signs Date Temp Pulse Resp B/P (MAP) Pulse Ox O2 O2 Flow FiO2 Time Delivery Rate 08/11/18 98.1 71 17 136/80 98 11:36 (98) 08/10/18 Room Air 08:30 Intake and Output 08/10/18 08/10/18 08/11/18 1515:00 23:00 07:00 IntakeIntake Total 1900 ml 500 ml OutputOutput Total 1000 ml 900 ml BalanceBalance 900 ml -400 ml Exam Patient had a temperature of 100.7 at 4:00 this morning. She is voiding well and the urine is clear. Results/Medications Result Diagram: 08/11/18 0601 08/11/18 0601 Results 24 hrs Laboratory Tests Test 08/11/18 06:01 White Blood Count 11.8 H Red Blood Count 3.80 L Hemoglobin 8.8 L Hematocrit 29.1 L Mean Corpuscular Volume 76.6 L Mean Corpuscular Hemoglobin 23.2 L Mean Corpuscular Hemoglobin Concent 30.2 L Red Cell Distribution Width 17.5 H Platelet Count 393 Mean Platelet Volume 10.2 Immature Granulocytes % 0.800 H Neutrophils % 67.8 Lymphocytes % 16.0 Monocytes % 12.8 H Eosinophils % 2.3 Basophils % 0.3 Nucleated Red Blood Cells % 0.0 Immature Granulocytes # 0.090 H Neutrophils # 8.0 H Lymphocytes # 1.9 Monocytes # 1.5 H Eosinophils # 0.3 Basophils # 0.0 Nucleated Red Blood Cells # 0.0 Sodium Level 140 Potassium Level 4.2 Chloride Level 110 Carbon Dioxide Level 23 Anion Gap 7 Blood Urea Nitrogen 9 Creatinine 0.85 Est Glomerular Filtrat Rate mL/min > 60 Glucose Level 98 Calcium Level 8.6 Home Meds Reported Medications Hydrocodone/Acetaminophen ([place] 7.5-325 Tablet) 1 Each Tablet, 1 EACH PO Q4H, TAB 08/07/18 Discontinued Scripts Levofloxacin* (Levaquin*) 500 Mg Tablet, 500 MG PO DAILY for 5 Days, TAB Prov:ZECHARIAH THOMAS 02/15/16 Medications Current Medications Ondansetron HCl (Zofran Inj) 4 mg Q4 PRN IV NAUSEA; Start 08/07/18 at 20:00 Zolpidem Tartrate (Ambien) 5 mg HS MAY REPEAT X 1 PRN PO INSOMNIA; Start 08/07/18 at 20:00 Morphine Sulfate (morphine) 2 mg Q2H PRN IV PAIN LEVEL 4-6 Last administered on 08/09/18at 11:39; Admin Dose 2 MG; Start 08/07/18 at 23:00 Morphine Sulfate (morphine) 3 mg Q3H PRN IV SEVERE PAIN LEVEL 7-10 Last administered on 08/10/18at 05:31; Admin Dose 3 MG; Start 08/07/18 at 23:00 Acetaminophen (Tylenol Tab) 650 mg Q4H PRN PO MILD PAIN(1-3)OR ELEVATED TEMP Last administered on 08/11/18at 01:38; Admin Dose 650 MG; Start 08/08/18 at 12:00 Polyethylene Glycol (Miralax) 17 gm DAILY PO Last administered on 08/11/18at 08:43; Admin Dose 17 GM; Start 08/08/18 at 17:00 Sodium Chloride 1,000 ml @ 100 mls/hr Q10H IV Last administered on 08/10/18at 20:33; Admin Dose 100 MLS/HR; Start 08/08/18 at 19:30 Famotidine (Pepcid) 20 mg HS PO Last administered on 08/10/18at 20:33; Admin Dose 20 MG; Start 08/08/18 at 21:00 Senna (Senokot) 2 tab BID PO Last administered on 08/11/18at 08:43; Admin Dose 2 TAB; Start 08/10/18 at 17:00 Meropenem/Sodium Chloride 50 ml @ 100 mls/hr Q8 IVPB ; Start 08/11/18 at 14:00 Assessment/Plan Hospital Course (Demo Recall) 63-year-old female with a history of a large right renal stone underwent cystoscopy and insertion of right ureteral JJ stent and right extracorporeal shockwave lithotripsy on August 04, 2018. She was discharged home on [place] 7.5- 325 mg. The patient presented to the emergency room at [facility] with fever of 103.3 and chills and abdominal pain. A CT scan of the abdomen and pelvis was done and that showed: Right hydroureter nephrosis despite presence of double-J ureteral stent - rule out stent failure. 2.7 cm calculus right renal pelvis either adjacent to or attached to the pigtail. Multiple nonobstructing right renal calculi. Concretion along the stent in the distal ureter. Right renal cysts. Fatty liver. Vascular calcifications. Gastric bypass. Patient states that she was passing blood earlier but that has cleared. On the physical exam she has right flank tenderness and right side of upper abdomen also tender. I reviewed the CT scan with her and showed her the stones in her right kidney. Impression: Patient has a large right renal stone and she is status post cystoscopy insertion of right ureteral JJ stent and right extracorporeal shockwave lithotripsy. She did have a temperature of 100.7 last night. She is comfortable at the present. Both her urine culture and blood culture grew E. coli ESBL. Patient may be discharged home on IV ertapenem for 10 days and she could follow-up with her urologist as an outpatient VAUGHN GARZA MD Aug 11, 2018 13:25
[2018-08-11] MEDS: MEROPENEM 1 GM/50ML(PMX) 50 ML IVPB SCH ×2 (15:06→21:31)
[2018-08-11] MEDS: FAMOTIDINE 20 MG TAB PO SCH (21:30)
[2018-08-12] VITALS (8 sets, daily range): BP systolic 131–147; BP diastolic 72–75; PULSE 50–86; RESP 16–20
[2018-08-12] MEDS: MEROPENEM 1 GM/50ML(PMX) 50 ML IVPB SCH (05:58)
[2018-08-12] MEDS: SOD CHLORIDE 0.9% 1,000 ML IV SCH (05:58)
--- NOTE | 2018-08-12 08:31 | DS ---
DATE OF ADMISSION: 08/07/2018 DATE OF DISCHARGE: DISCHARGE DIAGNOSES: 1. Extended spectrum beta-lactamase Escherichia coli urinary tract infection. 2. Right kidney stone. Status post cystoscopy and right ureteral stent placement prior to admission . HOSPITAL COURSE: A 63-year-old very pleasant female with history of large right kidney stone status post insertion of right ureteral JJ stent and right extracorporal shockwave lithotripsy on 08/04/2018 presented to emergency room with right flank pain and fever. The CAT scan of the abdomen and pelvis showed a right hydroureter. The stent was in the right place. There were multiple nonobstructing r ight renal calculi. Urine culture grew ESBL E. coli. Case was discussed with Dr. Garza. I ordere d IV meropenem. I also ordered a PICC line placement. The patient is in a stable condition for disc harge following PICC line placement. She will receive IV ertapenem at home, 1 gram daily for 10 days . She will follow up with PCP and Dr. Duggan. Blood cultures from 08/08/2018 also grew E. coli. Her white blood cell count was 11.8 on the day of discharge. Dictated By: DOMINGO PALMA MD SK/NTS Conf#: [id number] DID#: [id number] CC: VAUGHN GARZA MD; LOUIE GARCIA MD;*[facility]*
[2018-08-12] MEDS: SENNA TAB PO SCH (08:40)
[2018-08-12] MEDS: POLYETHYLENE GLYCOL 17 GM PACKET PO SCH (08:40)
--- NOTE | 2018-08-12 10:40 | PN ---
Date/Time of Note Date/Time of Note DATE: 08/12/18 TIME: 10:37 Subjective Doing well. No complaint of back pain. No more fevers. No dysuria Objective Vitals Vital Signs Date Temp Pulse Resp B/P (MAP) Pulse Ox O2 O2 Flow FiO2 Time Delivery Rate 08/12/18 54 08:04 08/12/18 98.0 16 131/73 98 07:24 (92) 08/10/18 Room Air 08:30 Intake and Output 08/11/18 08/11/18 08/12/18 1515:00 23:00 07:00 IntakeIntake Total 1900 ml 1300 ml OutputOutput Total 800 ml BalanceBalance 1900 ml 500 ml Clear to auscultation bilaterally Regular rate and rhythm Soft nontender nondistended normoactive bowel sounds No CVA tenderness No edema Nonfocal Results Result Diagram: 08/11/1860008/11/18 06 Medications Medications Current Medications Ondansetron HCl (Zofran Inj) 4 mg Q4 PRN IV NAUSEA; Start 08/07/18 at 20:00 Zolpidem Tartrate (Ambien) 5 mg HS MAY REPEAT X 1 PRN PO INSOMNIA; Start 08/07/18 at 20:00 Morphine Sulfate (morphine) 2 mg Q2H PRN IV PAIN LEVEL 4-6 Last administered on 08/09/18at 11:39; Admin Dose 2 MG; Start 08/07/18 at 23:00 Morphine Sulfate (morphine) 3 mg Q3H PRN IV SEVERE PAIN LEVEL 7-10 Last administered on 08/10/18at 05:31; Admin Dose 3 MG; Start 08/07/18 at 23:00 Acetaminophen (Tylenol Tab) 650 mg Q4H PRN PO MILD PAIN(1-3)OR ELEVATED TEMP Last administered on 08/11/18at 01:38; Admin Dose 650 MG; Start 08/08/18 at 12:00 Polyethylene Glycol (Miralax) 17 gm DAILY PO Last administered on 08/12/18at 08:40; Admin Dose 17 GM; Start 08/08/18 at 17:00 Famotidine (Pepcid) 20 mg HS PO Last administered on 08/11/18at 21:30; Admin Dose 20 MG; Start 08/08/18 at 21:00 Senna (Senokot) 2 tab BID PO Last administered on 08/12/18at 08:40; Admin Dose 2 TAB; Start 08/10/18 at 17:00 Meropenem/Sodium Chloride 50 ml @ 100 mls/hr Q8 IVPB Last administered on 08/12/18at 05:58; Admin Dose 100 MLS/HR; Start 08/11/18 at 14:00 IV Flush (NS 10 ml) 10 ml PRN PRN IV IV PROTOCOL; Start 08/11/18 at 17:30 Sodium Chloride 1,000 ml @ 100 mls/hr Q10H IV Last administered on 08/11/18at 21:31; Admin Dose 100 MLS/HR; Start 08/11/18 at 20:00 VTE Prophylaxis Risk score (from [facility])>0 risk: 2 SCD applied (from [facility]): No SCD contraindication: low risk/ambulating Lines/Catheters IV Catheter Type: Saline Lock Perez in Place: No Assessment/Plan Assessment/Plan ESBL E. coli UTI and bacteremia Kidney stone. Status post recent lithotripsy and stent placement Patient is stable for discharge IV ertapenem at home for 10 days Follow-up with PCP and her own urologist Case was discussed with DOMINGO White MD Aug 12, 2018 10:40
--- NOTE | 2018-08-12 13:47 | CONS ---
Consult Date/Type/Reason Admit Date/Time Aug 07, 2018 at 18:50 Initial Consult Date 08/07/18 Type of Consultation: Urology Reason for Consultation Right kidney stones, urinary tract infection and septicemia with E. coli ESBL Requesting Provider: LACIE STEWARD MD Date/Time of Note DATE: 08/12/18 TIME: 13:46 Subjective Patient states that she is feeling better. She has no pain and no dysuria. Objective Vitals Vital Signs Date Temp Pulse Resp B/P (MAP) Pulse Ox O2 O2 Flow FiO2 Time Delivery Rate 08/12/18 64 12:08 08/12/18 98.0 17 147/72 96 11:22 (97) 08/10/18 Room Air 08:30 Intake and Output 08/11/18 08/11/18 08/12/18 1515:00 23:00 07:00 IntakeIntake Total 1900 ml 1300 ml OutputOutput Total 800 ml BalanceBalance 1900 ml 500 ml Exam Abdomen is soft, there is no flank tenderness. Results/Medications Result Diagram: 08/11/18 0608/11/18 06 Home Meds Active Scripts Ertapenem Sodium (Invanz) 1 Gm Vial, 1 GM IM DAILY for 10 Days, VIAL Prov:DOMINGO PALMA MD 08/11/18 Reported Medications Hydrocodone/Acetaminophen ([place] 7.5-325 Tablet) 1 Each Tablet, 1 EACH PO Q4H, TAB 08/07/18 Discontinued Scripts Levofloxacin* (Levaquin*) 500 Mg Tablet, 500 MG PO DAILY for 5 Days, TAB Prov:ZECHARIAH THOMAS 02/15/16 Medications Current Medications Ondansetron HCl (Zofran Inj) 4 mg Q4 PRN IV NAUSEA; Start 08/07/18 at 20:00 Zolpidem Tartrate (Ambien) 5 mg HS MAY REPEAT X 1 PRN PO INSOMNIA; Start 08/07/18 at 20:00 Morphine Sulfate (morphine) 2 mg Q2H PRN IV PAIN LEVEL 4-6 Last administered on 08/09/18at 11:39; Admin Dose 2 MG; Start 08/07/18 at 23:00 Morphine Sulfate (morphine) 3 mg Q3H PRN IV SEVERE PAIN LEVEL 7-10 Last administered on 08/10/18at 05:31; Admin Dose 3 MG; Start 08/07/18 at 23:00 Acetaminophen (Tylenol Tab) 650 mg Q4H PRN PO MILD PAIN(1-3)OR ELEVATED TEMP Last administered on 08/11/18at 01:38; Admin Dose 650 MG; Start 08/08/18 at 12:00 Polyethylene Glycol (Miralax) 17 gm DAILY PO Last administered on 08/12/18 08:40; Admin Dose 17 GM; Start 08/08/18 at 17:00 Famotidine (Pepcid) 20 mg HS PO Last administered on 08/11/18 21:30; Admin Do se 20 MG; Start 08/08/18 at 21:00 Senna (Senokot) 2 tab BID PO Last administered on 08/12/18 08:40; Admin Dose 2 TAB; Start 08/10/18 at 17:00 Meropenem/Sodium Chloride 50 ml @ 100 mls/hr Q8 IVPB Last administered on 08/12/18at 05:58; Admin Dose 100 MLS/HR; Start 08/11/18 at 14:00 IV Flush (NS 10 ml) 10 ml PRN PRN IV IV PROTOCOL; Start 08/11/18 at 17:30 Sodium Chloride 1,000 ml @ 100 mls/hr Q10H IV Last administered on 08/11/18 21:31; Admin Dose 100 MLS/HR; Start 08/11/18 at 20:00 Assessment/Plan Hospital Course (Demo Recall) 63-year-old female with a history of a large right renal stone underwent cystoscopy and insertion of right ureteral JJ stent and right extracorporeal shockwave lithotripsy on August 04, 2018. She was discharged home on [place] 7.5- 325 mg. The patient presented to the emergency room at [facility] with fever of 103.3 and chills and abdominal pain. A CT scan of the abdomen and pelvis was done and that showed: Right hydroureter nephrosis despite presence of double-J ureteral stent - rule out stent failure. 2.7 cm calculus right renal pelvis either adjacent to or attached to the pigtail. Multiple nonobstructing right renal calculi. Concretion along the stent in the distal ureter. Right renal cysts. Fatty liver. Vascular calcifications. Gastric bypass. Patient states that she was passing blood earlier but that has cleared. On the physical exam she has right flank tenderness and right side of upper abdomen also tender. I reviewed the CT scan with her and showed her the stones in her right kidney. Impression: Patient has a large right renal stone and she is status post cystoscopy insertion of right ureteral JJ stent and right extracorporeal shockwave lithotripsy. She has been afebrile for the past 24 hours. She is comfortable at the present. Both her urine culture and blood culture grew E. coli ESBL. Patient may be discharged home on IV ertapenem for 10 days and she could follow-up with her urologist as an outpatient VAUGHN GARZA MD Aug 12, 2018 13:47
== END 2018-08-12 14:10 | disposition home health service (06) | DRG 872 ==
LOC: E/R 17:01 → TEL 18:50 → EDBEDREQSVC 19:53 → TEL 08-11 00:02
PROVIDERS: ADMIT Internal Medicine; ATTEND Internal Medicine
PROC: 02HV33Z Insertion of Infusion Device into Superior Vena Cava, Percutaneous Approach (ICD-10-PCS; principal; 2018-08-11)
DX: A41.51 Sepsis due to Escherichia coli [E. coli] (principal); N13.6 Pyonephrosis; N39.0 Urinary tract infection, site not specified; R65.20 Severe sepsis without septic shock; B96.20 Unspecified Escherichia coli [E. coli] as the cause of diseases classified elsewhere; K76.0 Fatty (change of) liver, not elsewhere classified; Z98.84 Bariatric surgery status
CPT/HCPCS: 36415; 36569; 71045; 74018; 74176; 76937; 80048; 80053; 81001; 82355; 83605; 83735; 84100; 84484; 85025; 85610; 85730; 87086; 93005; 96374; 96375; A4310; J0696; J1885; J2185; J2270; J2405; J7030